=== PATIENT | male | born 2000 | race Caucasian/White ===

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

== ENCOUNTER 2023-01-22 13:57 | Emergency (ER) | payer BC, SELFPAY ==
[2023-01-22 14:30] VITALS: BP 145/90; PULSE 84; RESP 18; TEMP 37; O2SAT 99; BMI 30.2
--- NOTE | 2023-01-22 15:02 | EXP.UTC ---
Discharge Plan Disposition Patient Disposition: Home, Self-Care Condition: Good Prescriptions Prescriptions: New chlorpromazine 25 mg tablet 25 mg PO TID PRN (Reason: hiccups) Qty: 9 0RF Referrals Follow up/Referrals: Rod Narayan MD [Primary Care Provider] - See instructions Activity Restrictions/Add. Instructions Additional Instructions/Restrictions: Tips for getting rid of hiccups The following tips may help get rid of hiccups: Sip ice-cold water slowly or gargle with very cold water. Hold the breath for a short time, then breathe out. Do this three or four times every 20 minutes. While swallowing, place gentle pressure on the nose. Place gentle pressure on the diaphragm. Bite on a lemon. Swallow some granulated sugar. Take a tiny amount of vinegar, just enough to taste. Breathe in and out of a paper bag. Never use a plastic bag for this, and never cover the head with the bag. Sit down and hug the knees as close to the chest as possible for a short time. Lean forward to compress the chest gently. Try an alternative remedy, such as?[email or web address]://www.medicalnewstoday.com/articles/740970.php?or hypnosis. Gently pull on the tongue. Rub the eyes. Gently touch one finger to the throat to try to trigger a gag reflex. Take medication as prescribed if no improvement follow up with your family Doctor if no improvement in the next 48 hours Straight to ER if any life threatening symptoms May try over the counter Gas x to help with gas Clinical Impressions Clinical Impression: Intractable hiccups Instructions Patient Instructions: DI for Hiccups, Hiccups Discharge ED Provider: Maria De Jesus [facility] General Stated complaint: Persistant hiccuping since 01/21 Mode of Arrival: Ambulatory Source of Information: Patient Limitations: No Limitations Time Seen by Provider: 01/22/23 15:02 Description of Symptoms (Recalled from Triage Doc. by RN): hiccups, build up of gas, interrupted sleep. They have been on and off HEENT Symptoms (Recalled from RN notes): Yes Resp Symptoms (Recalled from RN notes): No Skin Symptoms (Recalled from RN notes): No MS Symptoms (Recalled from RN notes): No Functional Status (Recalled from RN notes): n/a History of Present Illness Provider Complaint: Patient states that he has been having hiccups since last night that started after eating greasy fatty foods and will stop then start back a few minutes later States that he has been passing gas also and feels like he is gassy States that he was up most of the night due to the hiccups so today when he tried several at home remedies without success he came in to get checked Related Data Previous Rx's Medication Instructions Recorded chlorpromazine 25 mg tablet 25 mg PO TID PRN hiccups #9 tabs 01/22/23 Allergies Allergy/AdvReac Type Severity Reaction Status Date / Time No Known Allergies Allergy Verified 01/22/23 14:43 Worker's Comp Is this a Worker's Comp case?: No [facility] Disclaimer: The information contained in this section may have been updated after the patient was seen, as this information can be updated by other users. Social History Smoking Status: Unknown if ever smoked alcohol intake: never current occupational status: other Travel in the last 8 weeks: None household members: family housing: house ROS Obtained: Yes All systems reviewed & no additional complaints except as documented and Yes Systems reviewed as appropriate & no additional complaints except as documented Constitutional Constitutional: Reports system reviewed and no additional complaints, except as documented and Reports as per HPI ENT Ears, Nose, Mouth, and Throat: Reports system reviewed and no additional complaints, except as documented and Reports as per HPI Cardiovascular Cardiovascular: Reports system reviewed and no additional complaints, except as documented and Reports as per HPI Respiratory Respirat
--- NOTE | 2023-01-22 15:11 | XR_ITS ---
PROCEDURE INFORMATION: Exam: XR Abdomen Exam date and time: 01/22/2023 3:19 PM Age: 23 years old Clinical indication: Bloating and other: Hiccups and gas build-up since last night. ; Additional info: Ongiong hiccups TECHNIQUE: Imaging protocol: Radiologic exam of the abdomen. Views: Frontal supine view of the abdomen. 1 View. COMPARISON: CR XR CHEST 2V 01/22/2023 3:18 PM FINDINGS: Gastrointestinal tract: Unremarkable bowel gas pattern. Intraperitoneal space: No free air. Surgical clips projected in the right midabdomen Bones/joints: Unremarkable. IMPRESSION: Unremarkable bowel gas pattern.
--- NOTE | 2023-01-22 15:11 | XR_ITS ---
PROCEDURE INFORMATION: Exam: XR Chest Exam date and time: 01/22/2023 3:18 PM Age: 23 years old Clinical indication: Other: Hiccups and gas build-up since last night. Patient HX: Patient stated he eats a lot of greasy food. TECHNIQUE: Imaging protocol: Radiologic exam of the chest. Views: 2 views. COMPARISON: CR [id number] SPINE ENTIRE 2-3 VW SCOLIOSIS 04/20/2017 11:15 AM FINDINGS: Lungs: No evidence of pneumonia or interstitial edema. Pleural spaces: Unremarkable. No pleural effusion. No pneumothorax. Heart/Mediastinum: Unremarkable. No cardiomegaly. No subdiaphragmatic free air Bones/joints: Unremarkable. IMPRESSION: No evidence of pneumonia or interstitial edema.
[2023-01-22 16:08] VITALS: BP 145/90; PULSE 84; RESP 18; TEMP 37; O2SAT 99
== END 2023-01-22 16:08 | disposition home or self-care (01) ==
PROVIDERS: Emergency Provider Nurse Practitioner; PCP Family Medicine
DX: R06.6 Hiccough (principal)
CPT/HCPCS: 71046; 74018; 99212; 99214; G0463